=== PATIENT | male | born 1990 | race Native Hawaiian/Other Pacific Islander ===

== ENCOUNTER 2023-06-16 08:21 | Day surgery (SDC) | payer OTHER, SELFPAY ==
--- NOTE | 2023-06-16 | PATH_ITS ---
[facility] Accession Number: [id number] No. of containers..01 Tissue . 01 Material submitted: . body - COLON (DIARRHEA) . 01 Clinical history: . 06/22/2023 BIOPSY SITE VERIFIED BY SCOTTY (RN) ZACH . 01 Diagnosis: COLON, RANDOM, BIOPSIES: - BENIGN COLONIC MUCOSA, NEGATIVE FOR MICROSCOPIC COLITIS. - NEGATIVE FOR ACTIVE OR CHRONIC COLITIS. TXN 06/22/2023 1224 Local . 01 Electronically signed: . Frank Dhillon MD, Pathologist NPI- [id number] . 01 Gross description: . The specimen is received in formalin labeled with the patient's name, , and diarrhea, consists of multiple bell soft tissue fragments aggregating to 0.7 x 0.5 x 0.1 cm. Filtered and submitted entirely in cassette A1. ([id number]) /MRV 06/18/2023 1514 Local . 01 Pathologist provided ICD-10: R76.8, R14.0 . 01 CPT . 667680 Specimen Comment: A courtesy copy of this report has been sent to [phone] Performed at: 01 [facility] [address] [place] [address] [address], [place], [place] [id number] MD Danny Leger MD Phone: [phone]
[2023-06-16] MEDS: LACTATED RINGERS 1,000 ML 150 ML IV (09:30)
[2023-06-16 09:32] VITALS: BP 116/76; PULSE 64; RESP 16; TEMP 36.7; O2SAT 98; BMI 25.7
--- NOTE | 2023-06-16 10:35 | PM.HP.1 ---
History of Present Illness History of Present Illness Chief complaint: Dx Colonoscopy w/poss bx Narrative: Diarrhea PFSH Social History household members: spouse Meds Home Medications and Allergies Home Medications Medication Instructions Recorded Confirmed Type No Known Home Medications 06/16/23 06/16/23 History Allergies Allergy/AdvReac Type Severity Reaction Status Date / Time No Known Drug Allergies Allergy Verified 06/16/23 09:30 Exam Vital Signs (past 8 hours): - 06/16/23 09:32 Temperature 98.1 F Pulse Rate 64 Respiratory Rate 16 Blood Pressure 116/76 Pulse Oximetry 98 Oxygen Delivery Method Room Air Oxygen Delivery Method Room Air Narrative Exam Narrative: Oropharynx free of lesions Chest clear to auscultation percussion Cardiac exam reveals no S3 or murmur Assessment & Plan Assessment & Plan narrative: Diarrhea need for colonoscopy and biopsies. Risks, benefits, alternatives have been explained.
--- NOTE | 2023-06-16 10:36 | PM.OP.COLON ---
Operative Date/Time/Diagnoses Date of procedure: 06/16/23 Pre-op diagnosis: See indication Procedure & Clinicians Study performed: And findings colonoscopy with biopsy Indications: Diarrhea Surgeon: Miranda Hair Procedure Notes Procedure in detail: After informed consent was obtained the patient was placed in left lateral decubitus position. Video colonoscope was introduced the rectum slowly advanced cecum. The IC valve was identified and intubated the wire was only able to see the most distal segment. This showed extensive lymphoid follicles. On slow withdrawal mucosa was carefully examined. The scope was removed. The patient tolerated procedure well. Blood loss none Complications none Sedation mac Findings 1. Normal colonoscopy to cecum though with possibly mild friability and left-sided loss of vascular pattern. Biopsies taken throughout the colon to rule out microscopic colitis 2. Brief view in the terminal ileum appeared normal with extensive lymphoid follicles but no evidence of inflammatory bowel disease. I will leave a message for a supervisor soakers in for Dr. Gallagher and to consider upper endoscopy due to his loose stools and his abnormal celiac laboratories
[2023-06-16 11:26] VITALS: BP 114/82; PULSE 71; RESP 16; TEMP 36.3; O2SAT 97
[2023-06-16 11:31] VITALS: BP 109/75; PULSE 60; RESP 19; O2SAT 97
[2023-06-16 11:36] VITALS: BP 104/73; PULSE 62; RESP 18; O2SAT 98
[2023-06-16 11:41] VITALS: BP 114/70; PULSE 81; RESP 22; O2SAT 97
[2023-06-16 11:56] VITALS: BP 122/81; PULSE 66; RESP 12; TEMP 36.7; O2SAT 97
== END 2023-06-16 12:09 | disposition home or self-care (01) ==
PROVIDERS: Referring Provider Internal Medicine Gastroenterology; Visit Provider Internal Medicine Gastroenterology
PROC: 0DJD8ZZ Inspection of Lower Intestinal Tract, Via Natural or Artificial Opening Endoscopic (ICD-10-PCS; CPT 45378; principal; 2023-06-16 10:30)
DX: R19.7 Diarrhea, unspecified (principal)
CPT/HCPCS: 45380; J2704